=== PATIENT | male | born 1975 | race Caucasian/White ===

== ENCOUNTER 2022-03-04 22:42 | Inpatient (IN) | payer MEDICAID ==
[~2022-03-04] VITALS: Ht 175.3 cm; Wt 85.3 kg
[2022-03-04] MEDS ORDERED: ONDANSETRON HCL 4MG/2ML INJ IV STA (22:56)
[2022-03-04] MEDS ORDERED: LORAZEPAM 2MG/ML CPJ IV STA (22:56)
[2022-03-05] MEDS ORDERED: LORAZEPAM 2MG/ML CPJ IV ONE (00:30)
[2022-03-05] MEDS ORDERED: HALOPERIDOL LACTATE 5MG/ML VIAL IM ONE (00:30)
[2022-03-05 01:26] LABS: BASOPHILS % 0.3 % (0.0-2.0); HEMATOCRIT. 42.4 % (42.0-52.0); HEMOGLOBIN. 14.4 g/dL (14.0-18.0); LYMPHOCYTES % 8.1 % (20.0-50.0); MEAN PLATELET VOLUME 9.1 fl (7.4-10.4); MONOCYTES % 9.1 % (2.0-8.0); NEUTROPHILS % 82.5 % (40.0-76.0); PLATELET 178 x1000/uL (130-400); RED BLOOD CELL COUNT 4.51 mill/uL (4.7-6.1); RED CELL DISTRIBUTION WIDTH 13.9 % (11.6-14.6)
[2022-03-05 01:33] LABS: CHLORIDE 110 mEq/L (98-107)
[2022-03-05 01:46] LABS: ETHANOL BLOOD < 10 mg/dL
[2022-03-05] MEDS ORDERED: PIPERACILLIN/TAZOBACTAM 3.375GM/50ML PREMIX IV SCH (03:00)
[2022-03-05] MEDS ORDERED: VANCOMYCIN 1G PREMIX 200 ML IV SCH (03:00)
[2022-03-05] MEDS ORDERED: ACETAMINOPHEN 325MG TABLET PO PRN ×2 (07:15)
[2022-03-05] MEDS ORDERED: ZOLPIDEM TARTRATE 5MG TABLET PO PRN (07:15)
[2022-03-05] MEDS ORDERED: ONDANSETRON HCL 4MG/2ML INJ IV PRN (07:15)
[2022-03-05] MEDS ORDERED: NITROGLYCERIN 0.4MG TABLET SL SL PRN (07:15)
[2022-03-05] MEDS ORDERED: DOCUSATE SODIUM 100MG CAPSULE PO PRN (07:15)
[2022-03-05] MEDS ORDERED: MAGNESIUM/ALUMINUM HYDROXIDE/SIMETHICONE 30ML UDC PO PRN (07:15)
[2022-03-05] MEDS ORDERED: IPRATROPIUM/ALBUTEROL 0.5-3(2.5)MG/3ML NEB NEB PRN (07:15)
[2022-03-05] MEDS ORDERED: CLONIDINE 0.1MG TABLET PO PRN (07:15)
[2022-03-05] MEDS ORDERED: KETOROLAC 15MG/ML VIAL IV PRN (07:15)
[2022-03-05] MEDS ORDERED: GUAIFENESIN 200MG/10ML SUGAR FREE UDC PO PRN (07:15)
[2022-03-05] MEDS ORDERED: LEVOFLOXACIN 500MG PREMIX 100 ML IV SCH (08:00)
[2022-03-05 08:33] LABS: FOLIC ACID (FOLATE) SERUM 16.7 ng/mL (>5.38)
[2022-03-05] MEDS: ASPIRIN 325MG EC TABLET PO SCH (08:34)
[2022-03-05] MEDS: ZINC SULFATE 220 MG ( 50 ) CAPSULE PO SCH (08:34)
[2022-03-05] MEDS: ASCORBIC ACID 500 MG TABLET PO SCH ×2 (08:34→20:05)
[2022-03-05] MEDS: PANTOPRAZOLE SODIUM 40 MG/VIAL IV SCH (08:34)
[2022-03-05] MEDS: CHOLECALCIFEROL (D3) 1000 UNIT TABLET PO SCH (08:35)
[2022-03-05] MEDS: ENOXAPARIN 40MG/0.4ML SYR SUBCUT SCH (08:35)
[2022-03-05] MEDS ORDERED: CEFTRIAXONE 1,000 MG in DEXTROSE 5% WATER 50 ML IV SCH (09:00)
[2022-03-05] MEDS ORDERED: CEFTRIAXONE 1 G PREMIX 50 ML IV SCH (09:00)
[2022-03-05 15:45] LABS: *AMPHETAMINES SCREEN URINE NEGATIVE (NEGATIVE); *BARBITURATES SCREEN URINE NEGATIVE (NEGATIVE); *BENZODIAZEPINES SCREEN URINE NEGATIVE (NEGATIVE); *COCAINE SCREEN URINE NEGATIVE (NEGATIVE); CANNABINOID URINE SCREEN NEGATIVE (NEGATIVE); METHADONE URINE SCREEN NEGATIVE (NEGATIVE); OPIATES URINE SCREEN NEGATIVE (NEGATIVE); PHENCYCLIDINE URINE SCREEN NEGATIVE (NEGATIVE)
[2022-03-05 16:00] VITALS: BP 149/72
[2022-03-05 16:17] VITALS: BP 142/68
[2022-03-05 20:15] VITALS: BP 124/59
[2022-03-06] VITALS (11 sets, daily range): BP systolic 114–154; BP diastolic 55–85
[2022-03-06 00:45] LABS: CREATINE KINASE MB FRACTION 16.1 ng/mL (0.5-3.6)
[2022-03-06 06:05] LABS: BASOPHILS % 0.1 % (0.0-2.0); EOSINOPHILS % 0.3 % (0.0-5.0); HEMATOCRIT. 44.3 % (42.0-52.0); HEMOGLOBIN. 15.2 g/dL (14.0-18.0); LYMPHOCYTES % 15.5 % (20.0-50.0); MEAN CORPUSCULAR VOLUME 93.2 fL (80.0-94.0); MEAN PLATELET VOLUME 9.7 fl (7.4-10.4); NEUTROPHILS % 77.1 % (40.0-76.0); PLATELET 190 x1000/uL (130-400); RED BLOOD CELL COUNT 4.75 mill/uL (4.7-6.1); RED CELL DISTRIBUTION WIDTH 14.2 % (11.6-14.6)
[2022-03-06 06:19] LABS: CHLORIDE 108 mEq/L (98-107)
[2022-03-06 06:29] LABS: PHOSPHORUS 2.4 mg/dL (2.5-4.9)
[2022-03-06] MEDS: PANTOPRAZOLE SODIUM 40 MG/VIAL IV SCH ×2 (08:55→09:03)
[2022-03-06] MEDS: ASPIRIN 325MG EC TABLET PO SCH (08:56)
[2022-03-06] MEDS: ASCORBIC ACID 500 MG TABLET PO SCH ×2 (08:56→20:43)
[2022-03-06] MEDS: ZINC SULFATE 220 MG ( 50 ) CAPSULE PO SCH (08:56)
[2022-03-06] MEDS: CHOLECALCIFEROL (D3) 1000 UNIT TABLET PO SCH (08:56)
[2022-03-06] MEDS: ENOXAPARIN 40MG/0.4ML SYR SUBCUT SCH (09:00)
[2022-03-06] MEDS ORDERED: CEFTRIAXONE 1,000 MG in DEXTROSE 5% WATER 50 ML IV SCH (09:00)
[2022-03-06] MEDS ORDERED: LEVOFLOXACIN 500MG PREMIX 100 ML IV SCH (11:00)
[2022-03-06] MEDS ORDERED: HALOPERIDOL LACTATE 5MG/ML VIAL IM NR ×2 (14:45→15:30)
[2022-03-06] MEDS ORDERED: LORAZEPAM 2MG/ML CPJ IV PRN (15:30)
[2022-03-06] MEDS: BENZTROPINE MESYLATE 1MG TABLET PO SCH (20:43)
[2022-03-06] MEDS: HALOPERIDOL 5MG TABLET PO SCH (20:43)
[2022-03-06] MEDS ORDERED: HALOPERIDOL LACTATE 5MG/ML VIAL IM PRN (21:00)
[2022-03-07] VITALS (9 sets, daily range): BP systolic 105–167; BP diastolic 69–89
[2022-03-07] MEDS: ENOXAPARIN 40MG/0.4ML SYR SUBCUT SCH (09:00)
[2022-03-07] MEDS: ASPIRIN 325MG EC TABLET PO SCH (09:14)
[2022-03-07] MEDS: ASCORBIC ACID 500 MG TABLET PO SCH ×2 (09:14→21:00)
[2022-03-07] MEDS: ZINC SULFATE 220 MG ( 50 ) CAPSULE PO SCH (09:14)
[2022-03-07] MEDS: CHOLECALCIFEROL (D3) 1000 UNIT TABLET PO SCH (09:15)
[2022-03-07] MEDS: PANTOPRAZOLE SODIUM 40 MG/VIAL IV SCH (09:15)
[2022-03-07] MEDS: HALOPERIDOL 5MG TABLET PO SCH ×2 (09:16→21:00)
[2022-03-07] MEDS: BENZTROPINE MESYLATE 1MG TABLET PO SCH (21:00)
[2022-03-08] MEDS: ENOXAPARIN 40MG/0.4ML SYR SUBCUT SCH (09:00)
[2022-03-08] MEDS: ASPIRIN 325MG EC TABLET PO SCH (09:00)
[2022-03-08] MEDS: HALOPERIDOL 5MG TABLET PO SCH ×2 (09:00→20:33)
[2022-03-08] MEDS: CHOLECALCIFEROL (D3) 1000 UNIT TABLET PO SCH (09:00)
[2022-03-08] MEDS: ASCORBIC ACID 500 MG TABLET PO SCH ×2 (09:00→20:33)
[2022-03-08] MEDS: ZINC SULFATE 220 MG ( 50 ) CAPSULE PO SCH (09:00)
[2022-03-08] MEDS: PANTOPRAZOLE SODIUM 40 MG/VIAL IV SCH (09:00)
[2022-03-08] MEDS ORDERED: LEVOFLOXACIN 500MG TABLET PO SCH (11:00)
[2022-03-08 15:42] VITALS: BP 131/82
[2022-03-08] MEDS ORDERED: TEMA15CA5 PO (16:54)
[2022-03-08] MEDS ORDERED: BENZ1TAB7 PO (16:54)
[2022-03-08] MEDS ORDERED: HALO10TA13 PO (16:54)
[2022-03-08 19:19] VITALS: BP 132/82
[2022-03-08] MEDS: BENZTROPINE MESYLATE 1MG TABLET PO SCH (20:33)
[2022-03-09 04:00] VITALS: BP 141/90
[2022-03-09] MEDS ORDERED: FAMOTIDINE 20MG TABLET PO SCH (09:00)
== END 2022-03-09 09:00 | DRG 52 ==
LOC: ER 22:42 → 6WST 03-05 03:50 → EDBEDREQTM 03-05 03:52 → EDBEDREQ 03-05 03:52 → ENRESERV 03-05 15:24 → MICUNO 03-06 16:14 → 7WST 03-07 12:05
PROVIDERS: ADMIT Internal Medicine; ATTEND Internal Medicine
DX: G92.8 Other toxic encephalopathy (principal); E83.51 Hypocalcemia; F20.9 Schizophrenia, unspecified; D72.829 Elevated white blood cell count, unspecified; Z20.822 Contact with and (suspected) exposure to COVID-19; F43.9 Reaction to severe stress, unspecified; Z78.1 Physical restraint status
CPT/HCPCS: 36415; 71045; 80053; 80061; 80305; 80307; 80320; 80329; 82140; 82550; 82553; 82607; 82746; 83036; 83540; 83550; 83605; 83735; 83880; 84100; 84145; 84443; 84484; 85025; 87426; 93005; 93306; 93970; 99285; C9113; J0696; J1630; J1650; J1956; J2060; J2543; J3370; J7060; G0480